=== PATIENT | male | born 1980 | race Caucasian/White ===

== ENCOUNTER 2019-03-03 22:55 | Inpatient (IN) | payer SELFPAY ==
[~2019-03-03 22:55] MED LIST: Dexamethasone 20 MG/5 ML VIAL ONE; Glycopyrrolate 0.2 MG/ML 5 ML SYRINGE ONE; Lidocaine 1% PF 5 ML VIAL ONE; Metoclopramide HCl 10 MG/2 ML VIAL ONE; Ondansetron PF 4 MG/2 ML Vial ONE; PHENYLEPHRINE-NS 100 MCG/ML 10 ML SYRINGE ONE; PROPOFOL 200 MG/20 ML VIAL ONE; Rocuronium Bromide 10 MG/ML (10ML VIAL) ONE; Succinylcholine Chloride 20 MG/ML 10 ml SYRINGE FS ONE
[2019-03-03] MEDS ORDERED: Morphine 4 MG/ML VIAL ONE (23:21)
[2019-03-03 23:54] LABS: INR-International Normal Ratio 1.1; PTT 28.7 SEC (22.9-36.1)
--- NOTE | 2019-03-04 00:46 | HP ---
CHIEF COMPLAINT: Abdominal pain. HISTORY OF PRESENT ILLNESS: Mr. Richmond is a 39-year-old man who developed sudden onset of lower abdominal pain just below his umbilicus three days ago. This then moved to the right side and became more severe. He had fevers and chills for about a day and several episodes of nausea and vomiting. He stayed home from work for 2 days and today he decided to go to his local ER because the pain was not getting any better. The pain was aggravated by taking a deep breath, coughing, or walking. He is taking minimal p.o. due to the nausea and vomiting. No dysuria or diarrhea. CT was done at his local ER, which was consistent with perforated appendicitis and he was transferred to [facility] for further care. PAST MEDICAL HISTORY: None. REVIEW OF SYSTEMS: Ten system review of systems is negative, except per HPI. PAST SURGICAL HISTORY: None. OUTPATIENT MEDICATIONS: None. ALLERGIES: NO KNOWN DRUG ALLERGIES. FAMILY HISTORY: Hypertension. SOCIAL HISTORY: Patient smokes about half a pack a day. Drinks occasionally but not to excess and denies any other drug use. PHYSICAL EXAMINATION: VITAL SIGNS: Patient is afebrile, heart rate 96, respirations 16, 98% saturated on room air, and blood pressure 128/77. GENERAL: Reveals a healthy-appearing man, in no acute distress. He is not flushed or toxic in appearance. He is not jaundiced or icteric. HEENT: Unremarkable. NECK: Supple without lymphadenopathy or thyroid nodules. HEART: Regular in its rate and rhythm. No murmurs, rubs, or gallops. LUNGS: Clear to auscultation bilaterally with good air entry. ABDOMEN: Soft and nondistended. He is very tender to palpation in the right lower quadrant with some guarding. Minimally tender to palpation in the left lower quadrant and nontender in the upper abdomen. No palpable masses or hernias. EXTREMITIES: Warm and well perfused without edema. NEUROLOGIC: No focal deficits. PSYCHIATRIC: Alert, oriented, and appropriate. LABORATORY DATA: White count is normal at 8.2, but he does have a left shift. Coags are normal. Electrolytes are unremarkable, the BUN and creatinine are elevated at 21 and 2.27. No previous lab values are available. LFTs are normal. UA only has trace ketones and blood and 30 protein, 4 to 6 white cells and 1+ bacteria on micro. CT images are reviewed and I agree with the written report. The appendix is dilated with significant periappendiceal stranding and there appeared to be a few foci of air outside the tip of the appendix. ASSESSMENT: Appendicitis, likely perforated based on CT findings. Recommendation was made to proceed to the operating room emergently for laparoscopic appendectomy and the patient was in agreement with this plan. Inherent risks of surgery were discussed with him and his family. These risks include, but are not limited to, bleeding, infection, risks of anesthesia, damage to nearby structures including bowel, blood vessels, and bladder, need for open surgery or other procedures. He understands and accepts these risks and wishes to proceed. He received antibiotics prior to transfer to [facility] including cefepime and Flagyl. He has received morphine here. He did receive one dose of Toradol presumably before his lab work turned. He has received 2 L of IV fluid and appears to be euvolemic. We will continue IV fluids and monitor his urine output and renal function. If his renal function does not rapidly improve, then Medicine consult will be obtained. Patient denies any previous history of renal issues. Job ID: [id number]
[2019-03-04] MEDS ORDERED: Bupivacaine/Epinephrine 0.25% 30 ML VIAL ONE (02:03)
[2019-03-04] MEDS ORDERED: Famotidine/PF 20 mg/2ml Vial ONE (02:15)
[2019-03-04] MEDS ORDERED: Fentanyl 100 MCG/2 ML VIAL ONE ×2 (02:15→05:11)
[2019-03-04] MEDS ORDERED: Piperacillin/Tazobactam 3.375 GM VIAL ONE (03:07)
[2019-03-04] MEDS ORDERED: Meperidine HCl/PF 25 MG/ML VIAL SLOW IVP PRN (04:22)
[2019-03-04] MEDS ORDERED: Ondansetron HCl/PF 4 MG/2 ML Vial IVP PRN (04:22)
[2019-03-04] MEDS ORDERED: Promethazine HCl 25 MG/ML VIAL SLOW IVP PRN (04:22)
[2019-03-04] MEDS ORDERED: Promethazine HCl 25 MG/ML VIAL IM PRN ×2 (04:22→04:42)
[2019-03-04] MEDS ORDERED: Morphine 4 MG/ML VIAL SLOW IVP PRN (04:42)
[2019-03-04] MEDS ORDERED: hydrALAZINE 20 MG/ML VIAL SLOW IVP PRN (04:42)
[2019-03-04] MEDS ORDERED: Ondansetron PF 4 MG/2 ML Vial IVP PRN (04:42)
[2019-03-04] MEDS ORDERED: Dextrose 50% Abboject 50 ML SYRINGE SLOW IVP PRN (04:42)
[2019-03-04] MEDS ORDERED: Acetaminophen 325 MG TAB PO PRN (04:42)
[2019-03-04] MEDS ORDERED: Dextrose 5% in Water 1,000 ML IV PRN (04:42)
[2019-03-04] MEDS ORDERED: HYDROcodone/Acetaminophen 10/325 mg Tablet PO PRN (04:42)
[2019-03-04] MEDS ORDERED: traMADol HCl 50 MG TAB PO PRN ×2 (04:45)
[2019-03-04] MEDS: Piperacillin/Tazobactam 3.375 GM in Sodium Chloride 0.9% 100 ML IVPB SCH ×2 (11:20→18:28)
[2019-03-04] MEDS: Acetaminophen 1,000 MG in Premix Bag 1 BAG IVPB SCH ×4 (11:21→22:42)
[2019-03-04] MEDS: Famotidine 20 MG TAB PO SCH ×2 (11:25→21:23)
[2019-03-04] MEDS: Famotidine/PF 20 mg/2ml Vial SLOW IVP SCH ×2 (11:29→21:23)
[2019-03-04 11:44] LABS: #Lymphocytes 0.3 thou/uL (1.20-3.40); #Monocytes 0.2 thou/uL (0.11-0.59); %Eosinophils 0.1 % (0.0-10.0); %Lymphocytes 4.6 % (21.0-51.0); %Monocytes 2.9 % (0.0-10.0); %Neutrophils 92.4 % (42.0-75.0); Hemoglobin 13.2 g/dL (14.0-18.0); Mean Corpuscular HGB CONC 35.1 g/dL (32.0-36.0); Mean Corpuscular Volume 96.8 fL (78.0-98.0); Mean Platelet Volume 5.9 fL (7.4-10.4); Platelet Count 193 thou/uL (130-400); RBC Distribution Width 11.5 % (11.5-14.5); Red Blood Cell (RBC) Count 3.87 mill/uL (4.70-6.10); White Blood Cell (WBC) Count 6.5 thou/uL (4.8-10.8)
[2019-03-04 12:25] LABS: Anion Gap 13 mmol/L (10-20); BUN (Urea Nitrogen) 17 mg/dL (8.9-20.6); Calc. Creatinine Clearance 0 mL/min (70-130); Calcium 8.1 mg/dL (7.8-10.44); Carbon Dioxide 21 mmol/L (22-29); Chloride 104 mmol/L (98-107); Estimated GFR-MDRD 62; Glucose 128 mg/dL (70-105); Potassium 4.3 mmol/L (3.5-5.1); Sodium 134 mmol/L (136-145)
--- NOTE | 2019-03-04 18:14 | PDOC.OP ---
Operative Note - Operative Note Operative Note: PROCEDURE: Laparoscopic appendectomy. SURGEON: Foreign Maynard M.D. DATE OF PROCEDURE: 03/04/2019. PREOPERATIVE DIAGNOSIS: Perforated appendicitis. POSTOPERATIVE DIAGNOSIS: Perforated appendicitis. HISTORY: 39-year-old man who presented with signs and symptoms concerning for appendicitis. CT scan showed evidence of perforated appendicitis. DESCRIPTION OF PROCEDURE: After informed consent was obtained and appropriate antibiotics continued, the patient was taken to the operating room and placed in the supine position and general endotracheal anesthesia was administered. The bladder was decompressed with a Mcgraw catheter and the abdomen was prepped and draped in the standard sterile fashion. Local anesthesia was infused to the skin and subcutaneous tissues superior to the umbilicus. A transverse skin incision was made and a Veress needle placed into the abdominal cavity and carbon dioxide gas insufflated without difficulty. Opening pressure was less than 5. Carbon dioxide gas was insufflated to an intra-abdominal pressure 15 and the patient tolerated this well. The Veress needle was withdrawn and a [place] port advanced under direct laparoscopic vision into the abdominal cavity. Two additional ports were placed in the suprapubic and left lateral abdomen under direct laparoscopic vision after local anesthesia was infused at these sites. There were adhesions between the omentum and cecum, but no significant adhesions to the anterior wall and no generalized peritonitis. The cecum was mobilized medially and the inflamed appendix was visible in the retrocecal position.. The appendix was inflamed along its entire length necrosis evident in the midportion. Some of the murky fluid surrounding the mid appendix was suctioned out and sent for Gram stain and culture. Due to the retrocecal location of the appendix, an additional dissecting port was placed in the right upper quadrant to allow retraction of the cecal cap and dissection of the appendix. The terminal ileum was mobilized medially as well to allow dissection around the appendix. The appendix was grasped by the tip and elevated. The mesoappendix was then sequentially ligated and divided down to the base of the appendix. This was done with severe difficulty due to the inflamed necrotic nature of the appendix. The base of the appendix however was normal in appearance and was clearly seen to be at the confluence of the tenia. Two Endoloops were placed around the base of the appendix and the appendix was divided between these Endoloops, placed into an EndoCatch bag and drawn out through the suprapubic incision. The suprapubic trocar was then replaced and the operative site was easily irrigated to clear. A RADHA drain was placed into the abdominal cavity and drawn out through the right upper quadrant trocar site. This was placed to the right pericolic gutter and down into the pelvis. The suprapubic trocar was removed and the fascia closed under direct laparoscopic vision with a 0 Vicryl suture on a GraNee needle with excellent technical result. The left lateral trocar was then removed and hemostasis verified. Carbon dioxide gas was desufflated through the umbilical trocar which was then removed. The skin incisions were irrigated and additional local anesthesia infused at each site. The fascia at the umbilicus was easily visible and closed under direct vision with a 0 Vicryl suture on a UR 6 needle. The skin was closed with 4-0 subcuticular Monocryl sutures and Dermabond dressings were placed. The RADHA was secured to the skin with a 3-0 nylon suture. The patient was extubated and taken to the recovery room in good condition. Estimated blood loss was minimal. There were no complications. SPECIMEN: Appendix and periappendiceal fluid for Gram stain and culture.
[2019-03-04] MEDS: HYDROcodone/Acetaminophen 10/325 mg Tablet PO PRN ×2 (18:28→22:41)
[2019-03-04] MEDS: Sodium Chloride 0.9% 1,000 ML IV SCH (20:12)
[2019-03-04] MEDS: Enoxaparin Sodium 40 MG/0.4 ML SYRINGE SC SCH (21:23)
[2019-03-05] MEDS: Piperacillin/Tazobactam 3.375 GM in Sodium Chloride 0.9% 100 ML IVPB SCH ×4 (01:22→17:42)
[2019-03-05] MEDS: Sodium Chloride 0.9% 1,000 ML IV SCH ×2 (01:22→11:59)
[2019-03-05] MEDS: HYDROcodone/Acetaminophen 10/325 mg Tablet PO PRN ×4 (06:09→21:35)
[2019-03-05 06:56] LABS: #Lymphocytes 0.6 thou/uL (1.20-3.40); #Monocytes 0.5 thou/uL (0.11-0.59); #Neutrophils 6.1 thou/uL (1.40-6.50); %Basophils 0.4 % (0.0-1.0); %Eosinophils 0.1 % (0.0-10.0); %Lymphocytes 8.6 % (21.0-51.0); %Monocytes 6.4 % (0.0-10.0); %Neutrophils 84.6 % (42.0-75.0); Hemoglobin 12.2 g/dL (14.0-18.0); Mean Corpuscular HGB CONC 35.4 g/dL (32.0-36.0); Mean Corpuscular Hemoglobin 35.3 pg (27.0-31.0); Mean Corpuscular Volume 99.9 fL (78.0-98.0); Mean Platelet Volume 6.1 fL (7.4-10.4); Platelet Count 224 thou/uL (130-400); RBC Distribution Width 11.5 % (11.5-14.5); Red Blood Cell (RBC) Count 3.44 mill/uL (4.70-6.10); White Blood Cell (WBC) Count 7.3 thou/uL (4.8-10.8)
[2019-03-05 07:14] LABS: Anion Gap 12 mmol/L (10-20); BUN (Urea Nitrogen) 17 mg/dL (8.9-20.6); Calc. Creatinine Clearance 0 mL/min (70-130); Calcium 8.3 mg/dL (7.8-10.44); Carbon Dioxide 27 mmol/L (22-29); Chloride 103 mmol/L (98-107); Estimated GFR-MDRD 76; Glucose 135 mg/dL (70-105); Sodium 138 mmol/L (136-145)
[2019-03-05] MEDS: Famotidine 20 MG TAB PO SCH ×2 (09:42→21:34)
[2019-03-05] MEDS: Famotidine/PF 20 mg/2ml Vial SLOW IVP SCH ×2 (11:59→21:32)
--- NOTE | 2019-03-05 11:59 | PDOC.GSPN ---
Surgery Progress Note: Subj - Subjective Narrative: Patient is feeling good today. No abdominal pain to speak of. RADHA output is serosanguineous. White count is normal although he still has a left shift. The left shift has improved however. No fevers or chills. Tolerating his diet. Multiple organisms on Gram stain and culture is still pending. Abdominal exam is benign. He has appropriate postoperative tenderness. Incisions look good. Assessment/plan: Status post laparoscopic appendectomy for perforated gangrenous appendicitis. Continue IV antibiotics. Awaiting culture results. Likely discharge home tomorrow. Surgery Progress Note: Obj - Vital signs Vital signs: Vital Signs - Most Recent Temp Pulse Resp BP Pulse Ox 97.5 F L 82 20 119/71 95 03/05/19 08:01 03/05/19 08:01 03/05/19 08:01 03/05/19 08:01 03/05/19 08:01 Surgery Progress Note: Results - Labs Result Diagrams: 03/05/19 06:30 03/05/19 06:30 Lab results: Laboratory Results - last 24 hr 03/05/19 03/05/19 06:30 06:30 WBC 7.3 RBC 3.44 L Hgb 12.2 L Hct 34.4 L MCV 99.9 H MCH 35.3 H MCHC 35.4 RDW 11.5 Plt Count 224 MPV 6.1 L Neutrophils % 84.6 H Lymphocytes % 8.6 L Monocytes % 6.4 Eosinophils % 0.1 Basophils % 0.4 Neutrophils # 6.1 Lymphocytes # 0.6 L Monocytes # 0.5 Eosinophils # 0.0 Basophils # 0.0 Sodium 138 Potassium 4.0 Chloride 103 Carbon Dioxide 27 Anion Gap 12 BUN 17 Creatinine 1.09 Estimated GFR (MDRD) 76 Glucose 135 H Calcium 8.3
[2019-03-05] MEDS: Enoxaparin Sodium 40 MG/0.4 ML SYRINGE SC SCH (21:32)
[2019-03-06] MEDS: Piperacillin/Tazobactam 3.375 GM in Sodium Chloride 0.9% 100 ML IVPB SCH ×2 (00:41→06:20)
[2019-03-06 05:00] LABS: #Basophils 0.1 thou/uL (0.0-0.2); #Eosinphils 0.1 thou/uL (0.0-0.7); #Lymphocytes 1.5 thou/uL (1.20-3.40); #Monocytes 0.5 thou/uL (0.11-0.59); #Neutrophils 3.6 thou/uL (1.40-6.50); %Eosinophils 2.2 % (0.0-10.0); %Lymphocytes 26.3 % (21.0-51.0); %Monocytes 8.8 % (0.0-10.0); %Neutrophils 61.7 % (42.0-75.0); Hemoglobin 11.3 g/dL (14.0-18.0); Mean Corpuscular HGB CONC 34.6 g/dL (32.0-36.0); Mean Corpuscular Hemoglobin 34.8 pg (27.0-31.0); Mean Platelet Volume 5.9 fL (7.4-10.4); Platelet Count 209 thou/uL (130-400); RBC Distribution Width 11.7 % (11.5-14.5); Red Blood Cell (RBC) Count 3.26 mill/uL (4.70-6.10); White Blood Cell (WBC) Count 5.8 thou/uL (4.8-10.8)
[2019-03-06 05:19] LABS: Anion Gap 10 mmol/L (10-20); BUN (Urea Nitrogen) 17 mg/dL (8.9-20.6); Calc. Creatinine Clearance 0 mL/min (70-130); Carbon Dioxide 27 mmol/L (22-29); Chloride 105 mmol/L (98-107); Estimated GFR-MDRD Greater than 90; Glucose 119 mg/dL (70-105); Potassium 3.6 mmol/L (3.5-5.1); Sodium 138 mmol/L (136-145)
[2019-03-06] MEDS: HYDROcodone/Acetaminophen 10/325 mg Tablet PO PRN (06:23)
[2019-03-06 08:04] VITALS: BP 123/83; TEMP 98.4
[2019-03-06] MEDS: Famotidine 20 MG TAB PO SCH (08:26)
[2019-03-06] MEDS: Famotidine/PF 20 mg/2ml Vial SLOW IVP SCH (08:27)
== END 2019-03-06 11:14 | disposition home or self-care (01) | DRG 340 ==
LOC: ERS 22:55 → 3SE 03-04 02:31 → SDC/OP 03-04 04:40 → 3SE 03-04 05:49
PROVIDERS: ADMIT Surgery; ATTEND Surgery
PROC: 0DTJ4ZZ Resection of Appendix, Percutaneous Endoscopic Approach (ICD-10-PCS; principal; 2019-03-04)
DX: K35.32 Acute appendicitis with perforation, localized peritonitis, and gangrene, without abscess (principal); F17.210 Nicotine dependence, cigarettes, uncomplicated; M19.91 Primary osteoarthritis, unspecified site
CPT/HCPCS: 36415; 80048; 85025; 85610; 85730; 86850; 86900; 86901; 87070; 87077; 87186; 87205; 88304; 93005; 96374; J0131; J1100; J1650; J2001; J2270; J2405; J2543; J2704; J2765; J3010; J3490; S0028